=== PATIENT | female | born 1995 | race Two or more races ===

== ENCOUNTER → 2016-09-24 | Outpatient (CLI) | payer SELFPAY | LOC: RAD 08:23 | PROVIDERS: ATTEND Nurse Practitioner Women's Health | DX: Z34.82 Encounter for supervision of other normal pregnancy, second trimester (principal) | CPT/HCPCS: 76805 ==

== ENCOUNTER 2017-02-12 10:48 | Outpatient (CLI) | payer MEDICAID ==
--- NOTE | 2017-02-12 12:33 | Non Stress Test Report ---
Non Stress Test Datetime Report Generated by CPN: 02/12/2017 12:33 DEMOGRAPHIC EGA NST: 40.1 INDICATION Indication for Study: Ordered by Provider MONITORING Monitor Explained: Monitor Explained; Test Explained; Patient Verbalized Understanding Time on Monitor: 02/12/2017 11:05 Time off Monitor: 02/12/2017 11:46 NST Duration: 41 NST INTERVENTIONS NST Interventions: None Physician Notified NST: J. Rocha, CNM BABY A: [id number] BABY A Movement : Present Contraction Frequency : rare FHR Baseline : 140 Accelerations : 15X15 Decelerations : None Variability : Moderate 6-25bpm NST Review: Meets Criteria for Reactive NST NST Review and Verified By : Libby Camp RNC NST Results: Reactive NST REPORT Report Trigger: Send Report
--- NOTE | 2017-02-12 12:35 | RADIOLOGY REPORT (SQ) ---
EXAM DESCRIPTION: U/S OB LIMITED COMPLETED DATE/TIME: 02/12/2017 12:19 pm REASON FOR STUDY: iup 40 weeks OLGA COMPARISON: None. TECHNIQUE: Limited transabdominal grayscale ultrasound for evaluation of specific requested obstetri andrea parameters. LIMITATIONS: None. FINDINGS: CERVICAL LENGTH: Not applicable. Greater than 20 weeks. Need transvaginal study if indicat ed. OLGA: 11.4 cm. FHR: 155 beats per minute. PRESENTATION: Cephalic. OTHER: No other significant findings. IMPRESSION: LIMITED OBSTETRICAL ULTRASOUND WITH MEASURED PARAMETERS DELINEATED ABOVE. Trimester of : Third trimester - 28 weeks to delivery. TECHNICAL DOCUMENTATION: JOB ID: [id number] [employer]- All Rights Reserved
== END 2017-02-12 12:35 | disposition home or self-care (01) ==
LOC: LC 10:48
PROVIDERS: ATTEND Specialist
PROC: 4A1HXCZ Monitoring of Products of Conception, Cardiac Rate, External Approach (ICD-10-PCS; principal; 2017-02-12)
DX: O48.0 Post-term pregnancy (principal); Z3A.40 40 weeks gestation of pregnancy
CPT/HCPCS: 59025; 76815

== ENCOUNTER 2017-02-18 23:24 | Inpatient (IN) | payer MEDICAID ==
[2017-02-18 23:57] LABS: ABSOLUTE BASOPHILS # (AUTO) 0.1 10^3/uL (0.0-0.2); ABSOLUTE EOSINOPHILS # (AUTO) 0.1 10^3/uL (0.0-0.6); ABSOLUTE LYMPHOCYTES (AUTO) 3.1 10^3/uL (0.5-4.7); ABSOLUTE MONOCYTES (AUTO) 0.9 10^3/uL (0.1-1.4); ABSOLUTE NEUT (AUTO) 7.6 10^3/uL (1.7-8.2); BASOPHILS % (AUTO) 0.4 % (0-2); EOSINOPHILS % (AUTO) 0.4 % (0-6); HEMATOCRIT 30.7 % (36.0-47.0); HEMOGLOBIN 9.8 g/dL (12.0-15.5); HGB HCT DIFFERENCE -1.3; LYMPHOCYTES % (AUTO) 26.3 % (13-45); MEAN CORPUSCULAR HEMOGLOBIN 21.5 pg (27.0-33.4); MEAN CORPUSCULAR HGB CONC 31.8 g/dL (32.0-36.0); MEAN CORPUSCULAR VOLUME 68 fl (80-97); MONOCYTES % (AUTO) 7.7 % (3-13); RED BLOOD COUNT 4.53 10^6/uL (3.72-5.28); SEGMENTED NEUTROPHILS % (AUTO) 65.2 % (42-78); WHITE BLOOD COUNT 11.6 10^3/uL (4.0-10.5)
[2017-02-19 00:02] LABS: APPEARANCE,URINE SLIGHTLY-CLOUDY; BILIRUBIN,URINE NEGATIVE (NEGATIVE); GLUCOSE, URINE NEGATIVE (NEGATIVE); KETONES,URINE NEGATIVE (NEGATIVE); LEUKOCYTE ESTERASE,URINE SMALL (NEGATIVE); NITRITE,URINE NEGATIVE (NEGATIVE); PROTEIN,URINE NEGATIVE (NEGATIVE); URINE SPECIFIC GRAVITY 1.011; UROBILINOGEN,URINE NEGATIVE mg/dL (<2.0)
[2017-02-19 00:17] LABS: AMNISURE (ROM) NEGATIVE (NEGATIVE)
[2017-02-19 00:31] LABS: URINE BARBITURATES SCREEN NEGATIVE; URINE METHADONE SCREEN NEGATIVE; URINE OPIATES LOW NEGATIVE; URINE PHENCYCLIDINE SCREEN NEGATIVE
[2017-02-19] MEDS ORDERED: OXYTOCIN/NORMAL SALINE 1,000 ML IV PRN ×2 (00:34→20:23)
[2017-02-19] MEDS ORDERED: DINOPROSTONE 10 MG VAGINAL INSERT.SR PV ONE (00:34)
[2017-02-19] MEDS ORDERED: ACETAMINOPHEN 325 MG TABLET PO PRN (00:34)
[2017-02-19] MEDS ORDERED: MAG HYDROX/AL HYDROX/SIMETH SUSP 30 ML UDCUP PO PRN (00:34)
[2017-02-19] MEDS ORDERED: ZOLPIDEM TARTRATE 5 MG TABLET ONE (00:42)
[2017-02-19] MEDS: RINGERS SOLUTION,LACTATED 1,000 ML IV PRN ×3 (00:42→20:35)
[2017-02-19] MEDS ORDERED: DINOPROSTONE 10 MG VAGINAL INSERT.SR ONE (00:42)
[2017-02-19] MEDS: ZOLPIDEM TARTRATE 5 MG TABLET PO PRN ×2 (01:26→03:27)
[2017-02-19] MEDS ORDERED: MISOPROSTOL 0.1 MG TABLET ONE (14:09)
[2017-02-19] MEDS ORDERED: MISOPROSTOL 0.1 MG TABLET PO ONE (14:30)
[2017-02-19] MEDS ORDERED: OXYTOCIN/NORMAL SALINE 20 UNIT/1,000 ML RTUINJ ONE (20:27)
[2017-02-19] MEDS ORDERED: PENICILLIN G-K 5 MILLION UNIT VIAL ONE (22:34)
[2017-02-19] MEDS ORDERED: PENICILLIN G-K 5 MILLION UNIT VIAL IV PRN (22:44)
[2017-02-19] MEDS ORDERED: PENICILLIN G POTASSIUM 5,000,000 UNIT in DEXTROSE 5%-WATER 100 ML IV ONE (23:00)
[2017-02-20] MEDS ORDERED: PROMETHAZINE HCL INJ 25 MG/1 ML VIAL ONE (01:39)
[2017-02-20] MEDS ORDERED: NALBUPHINE HCL INJ 10 MG/1 ML AMPULE ONE (01:39)
[2017-02-20] MEDS ORDERED: NALBUPHINE HCL INJ 10 MG/1 ML AMPULE INJ ONE (01:50)
[2017-02-20] MEDS ORDERED: PROMETHAZINE HCL INJ 25 MG/1 ML VIAL IV ONE (01:50)
[2017-02-20] MEDS ORDERED: PENICILLIN G-K 5 MILLION UNIT VIAL ONE ×2 (02:14→07:18)
[2017-02-20] MEDS ORDERED: PENICILLIN G POTASSIUM 2,500,000 UNIT in DEXTROSE 5%-WATER 50 ML IV SCH (03:00)
[2017-02-20] MEDS ORDERED: FENTANYL/BUPIVACAINE/NS/PF 100 ML EPI PRN (05:06)
[2017-02-20] MEDS ORDERED: BENZOIN/ALOE VERA/STORAX/TOLU TINCTURE 60 ML TP PRN (05:06)
[2017-02-20] MEDS ORDERED: EPHEDRINE SULFATE INJ 50 MG/1 ML AMPULE IV PRN (05:06)
[2017-02-20] MEDS ORDERED: DIPHENHYDRAMINE HCL 50 MG/ML VIAL IM PRN (05:06)
[2017-02-20] MEDS ORDERED: BUPIVACAINE HCL 0.25 % INJ/PF (2.5 MG/1 ML) 30 ML VIAL INFIL ONE (05:06)
[2017-02-20] MEDS ORDERED: EPHEDRINE SULFATE INJ 50 MG/1 ML AMPULE ONE (05:15)
[2017-02-20] MEDS ORDERED: FENTANYL/BUPIVACAINE/NS/PF 200 MCG/100 ML RTUINJ EPI ONE (05:15)
[2017-02-20] MEDS ORDERED: BUPIVACAINE HCL 0.25 % INJ/PF (2.5 MG/1 ML) 30 ML VIAL ONE (05:15)
[2017-02-20] MEDS: RINGERS SOLUTION,LACTATED 1,000 ML IV PRN (06:31)
[2017-02-20] MEDS ORDERED: OXYTOCIN/NORMAL SALINE 0 UNIT/0 ML RTUINJ ONE (06:57)
[2017-02-20] MEDS ORDERED: LIDOCAINE 0.5% INJ-PF (5 MG/ML) 50 ML SDV ONE (06:57)
[2017-02-20] MEDS ORDERED: MISOPROSTOL 0.2 MG TABLET ONE (06:57)
[2017-02-20] MEDS ORDERED: LIDOCAINE 1% INJ-PF (10 MG/ML) 30 ML SDV ONE (07:18)
[2017-02-20] MEDS: PENICILLIN G-K 5 MILLION UNIT VIAL IV SCH ×4 (07:23→22:57)
[2017-02-20] MEDS ORDERED: DIPHENHYDRAMINE HCL 50 MG/ML VIAL ONE ×2 (08:30→08:52)
[2017-02-20] MEDS ORDERED: CEFAZOLIN 2 GM/D5W RTU 2 GM/50 ML RTUPB IV ONE (11:21)
[2017-02-20] MEDS ORDERED: CITRIC ACID/SODIUM CITRATE ORAL SOLN 15 ML UDCUP ONE (11:21)
[2017-02-20] MEDS ORDERED: ONDANSETRON HCL INJ/PF 4 MG/2 ML SDV ONE (11:22)
[2017-02-20] MEDS ORDERED: OXYTOCIN/NORMAL SALINE 20 UNIT/1,000 ML RTUINJ ONE ×2 (11:22→12:39)
[2017-02-20] MEDS ORDERED: OXYTOCIN 10 UNIT/ML VIAL ONE (11:22)
[2017-02-20] MEDS ORDERED: FENTANYL CITRATE INJ/PF 100 MCG/2 ML AMPUL ONE (11:23)
[2017-02-20] MEDS ORDERED: MIDAZOLAM 2 MG/2 ML INJ ONE (12:12)
[2017-02-20] MEDS ORDERED: ACETAMINOPHEN 100 ML IV ONE (12:52)
--- NOTE | 2017-02-20 13:21 | Delivery Summary ---
Del Sum A-C Datetime Report Generated by CPN: 02/20/2017 13:21 DELIVERY PERSONNEL DELIVERY PERSONNEL: [phone] Delivery Doctor:: Tyrell Mims DO Anesthesiologist:: Prashant Fletcher MD ALLIED HEALTH INSTRUCTOR:: R MICHELLE ALLIED HEALTH INSTRUCTOR Labor and Delivery Nurse:: Mariella Mariscal RN Student Observers:: SN Joselyn Clinical Nurse/TECHNICAL TRAINING MANAGER: ST Allie Clinical Nurse/TECHNICAL TRAINING MANAGER: Fartun Sanchez CST Additional Personnel: : MARGA KELLER MATERNAL INFORMATION Delivery Anesthesia: Spinal Medications After Delivery: Pitocin Bolus-Please Comment Meds After Delivery Comment: Pitocin 20 units in 1 L NS bolusing per order Estimated Blood Loss (ml): 600 Maternal Complications: None LABOR SUMMARY EDC: 02/11/2017 00:00 No. Babies in Womb: 1 Attempted: No Labor Anesthesia: Epidural LABOR INFORMATION Reason for Induction: Post Dates Onset of Labor: 02/19/2017 22:00 Cervical Ripening Agents: Cervidil; Cytotec @ Oxytocin: Induction Group B Beta Strep: positive Antibiotics # of Doses: 3 Antibiotics Time of Last Dose: 1140 Name of Antibiotic Given: PCN G, Ancef Steroids Given: None Reason Steroids Not Administered: Not Applicable MEMBRANES Membranes Rupture Method: Spontaneous Rupture of Membranes: 02/20/2017 06:18 Length of Rupture (hr): 5.77 Amniotic Fluid Color: Clear Amniotic Fluid Amount: Large Amniotic Fluid Odor: Normal STAGES OF LABOR Stage 3 hr: 0 Stage 3 min: 1 Total Time in Labor hr: 14 Total Time in Labor min: 5 VAGINAL DELIVERY Episiotomy: None Laceration Extension: N/A Laceration Type: None Sponge Count Correct: N/A Sharps Count Correct: N/A CSECTION DELIVERY Primary Indication: Secondary Arrest of Dilatation Secondary Indication: N/A CSection Urgency: Non-Scheduled CSection Incidence: Primary Labor: Labor Elective: Nonelective CSection Incision: Lower Uterine Transverse BABY A INFORMATION Delivery Date/Time: 02/20/2017 12:04 Method of Delivery: Vaginal Born in Route : No : N/A Forceps: N/A Vacuum Extraction: N/A Shoulder Dystocia : No PRESENTATION/POSITION BABY A Presentation: Cephalic Cephalic Presentation: Vertex Breech Presentation: N/A PLACENTA INFORMATION BABY A Placenta Delivery Time : 02/20/2017 12:05 Placenta Method of Delivery: Expressed Placenta Status: Delivered SCORES BABY A Heart Rate 1 min: >100 bpm Resp Effort 1 min: Good Cry Reflex Irritability 1 min: Cough or Sneeze or Pulls Away Muscle Tone 1 min: Active Motion Color 1 min: Blue/Pale Resuscitation Effort 1 min: Tactile Stimulation SCORE 1 MIN: 8 Heart Rate 5 min: >100 bpm Resp Effort 5 min: Good Cry Reflex Irritability 5 min: Cough or Sneeze or Pulls Away Muscle Tone 5 min: Active Motion Color 5 min: Body [place], Extremities Blue Resuscitation Effort 5 min: Tactile Stimulation SCORE 5 MIN: 9 INFORMATION BABY A Gestational Age at Delivery: 41.2 Gestational Status: Late Term- 41- 41.6 Weeks Outcome : Liveborn Infant Condition : Stable Sex: Female IDENTIFICATION BABY A Infant Verification Date/Time: 02/20/2017 12:16 ID Band Number: [id number] Mother's Name Verified: Yes RN Verifying : Elmo Mariscal, RN, RArvind Tyler, RN WEIGHT/LENGTH BABY A Birthweight (gm): 4005 Infant Weight (lb): 8 Weight (oz): 13 Infant Length (in): 21.50 Infant Length (cm): 54.61 CORD INFORMATION BABY A No. Cord Vessels: 3 Nuchal Cord : N/A Nuchal Cord- Other: body cord Cord Blood Taken: Yes-For Storage (Mom's Blood type +) Suction: Mouth; Nose ASSESSMENT BABY A Complications: None Physical Findings at Delivery: Within Normal Limits Infant Respirations: Appears Normal Skin to Skin: No Skin to Skin Time (min): 0 Advice Clerk/ALS Called : No Care By: Katina Tyler Transferred To: Nursery BABY B INFORMATION : N/A
[2017-02-20] MEDS ORDERED: ONDANSETRON HCL INJ/PF 4 MG/2 ML SDV IV PRN (14:06)
[2017-02-20] MEDS ORDERED: KETOROLAC TROMETHAMINE INJ/PF 30 MG/1 ML SDV IV PRN (14:06)
[2017-02-20] MEDS ORDERED: MORPHINE SULFATE 10 MG/ML INJ IV PRN (14:06)
[2017-02-20] MEDS ORDERED: MEASLES,MUMPS&RUBELLA VACC/PF 0.5 ML VIAL SUBCUT PRN ×3 (14:19→14:56)
[2017-02-20] MEDS ORDERED: PROMETHAZINE HCL INJ 25 MG/1 ML VIAL IV PRN ×2 (14:19→14:26)
[2017-02-20] MEDS ORDERED: ACETAMINOPHEN 325 MG TABLET PO PRN ×3 (14:19→14:56)
[2017-02-20] MEDS ORDERED: SIMETHICONE 80 MG TAB.CHEW PO PRN ×3 (14:19→14:56)
[2017-02-20] MEDS ORDERED: RINGERS SOLUTION,LACTATED 1,000 ML IV PRN ×3 (14:19→14:56)
[2017-02-20] MEDS ORDERED: OXYCODONE-ACETAMINOPHEN 5-325 MG TABLET PO PRN ×5 (14:19→14:56)
[2017-02-20] MEDS ORDERED: DIPH/PERTUSS(ACELL)/TETANUS VAC/PF 0.5 ML SYR (>=10YO) IM PRN ×3 (14:19→14:56)
[2017-02-20] MEDS ORDERED: HYDROMORPHONE HCL INJ/PF 2 MG/ML AMPULE IV PRN ×3 (14:19→14:56)
[2017-02-20] MEDS ORDERED: OXYTOCIN/NORMAL SALINE 1,000 ML IV PRN (14:26)
[2017-02-20] MEDS ORDERED: MORPHINE SULFATE 10 MG/ML INJ ONE (14:26)
--- NOTE | 2017-02-20 14:38 | Admission Physical ---
Datetime Report Generated by CPN: 02/20/2017 14:38 CURRENT ADMISSION Chief Complaint: Scheduled Induction of Labor Indication for Induction: Postterm Admit Plan: Admit to Unit; Initiate Labor Induction Protocol ALLERGIES Medication Allergies: No Medication Allergies: No Known Allergies (02/18/2017) Medication Allergies: No Known Allergies (02/12/2017) Medication Allergies: No Known Allergies (06/14/2015) Latex: No Latex Allergies OBSTETRICAL HISTORY EDC: 02/11/2017 00:00 : 3 Para: 0 Term: 0 : 0 SAB: 0 IAB: 2 Livin Cesareans: 0 VBACs: 0 Gestational Diabetes: No Rh Sensitization: No Incompetent Cervix: No PAIGE: No Infertility: No ART Treatment: No Uterine Anomaly: No IUGR: No Hx Previous C/S: No Macrosomia: No Hx Loss/Stillborn: No PIH: No Hx : No Placenta Previa/Abruption: No Depression/PP Depression: No PTL/PROM: No Post Hemorrhage: No Current Procedures: Ultrasound; NST SEE RECORDS Alcohol: No Marijuana : No Cocaine: No Other Illicit Drugs: No Cigarettes: Never Smoker. [id number] MEDICAL HISTORY Diabetes: No Blood Transfusion: No Pulmonary Disease (Asthma, TB): No Breast Disease: No Hypertension: No Claim Clinician Surgery: No Heart Disease: No Hosp/Surgery: Yes Autoimmune Disorder: No Anesthetic Complications: No Kidney Disease: No Abnormal Pap Smear: No Neuro/Epilepsy: No Psychiatric Disorders: No Other Medical Diseases: No Hepatitis/Liver Disease: No Significant Family History: No Varicosities/Phlebitis: No Trauma/Violence : No Thyroid Dysfunction: No Medical History Comments: sickle cell trait gallbladder removal 2015 INFECTIOUS HISTORY Gonorrhea: No Genital Herpes: Yes Chlamydia: Yes Tuberculosis: No Syphilis: No Hepatitis: No HIV/AIDS Exposure: No Rash or Viral Illness: No HPV: No Infectious History Comments: chlamydia July 2016 partner HSV PHYSICAL EXAM General: Normal HEENT: Normal Neurologic: Normal Thyroid: Normal Heart: Normal Lungs: Normal Breast: Deferred Back: Normal Abdomen: Normal Genitourinary Exam: Normal Extremities: Normal DTRs: Normal Pelvic Type: Adequate Vital Signs: Reviewed; Within Normal Limits VAGINAL EXAM Dilatation: closed Effacement: th Station: hi FETUS A EGA: 41.1 Monitoring: External US FHR- Baseline: 130 Variability: Moderate 6-25bpm Accelerations: 15X15 Decelerations: None FHR Category: Category I Presentation: Vertex Admit Comment: 21yo at 41+1ega presents for IOL due to post LUIS. Cvx closed/th/hi. Cervidil placed at 0100. GBS pos. PCN ordered for GBS prophylaxis. 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 Initiate IOL with Cervidil and proceed with FB/pitocin as indicated. Anticiapte . Pelvis adequate for EGMA. Sickle Cell Trait. PLANS FOR LABOR AND DELIVERY Pain Management: None Feeding Preference: Both Benefit of Breast Feed Discussed: Yes Circumcision: N/A INFORMED CONSENT Informed Consent Obtained: Vaginal Delivery; Risks, Benefits and Alternatives Discussed Signature: with User ID: [email or web address]
[2017-02-20] MEDS ORDERED: PROMETHAZINE HCL INJ 25 MG/1 ML VIAL IM PRN (14:56)
[2017-02-20] MEDS ORDERED: OXYTOCIN/NORMAL SALINE 20 UNIT/1,000 ML RTUINJ INJ PRN (14:56)
[2017-02-20] MEDS: IBUPROFEN 800 MG TABLET PO SCH ×2 (17:56→23:41)
[2017-02-20] MEDS: DOCUSATE SODIUM 100 MG CAPSULE PO SCH (17:57)
[2017-02-20] MEDS ORDERED: DOCUSATE SODIUM 100 MG CAPSULE PO SCH ×2 (18:00)
[2017-02-20] MEDS: OXYCODONE-ACETAMINOPHEN 5-325 MG TABLET PO PRN (20:15)
[2017-02-21] MEDS: OXYCODONE-ACETAMINOPHEN 5-325 MG TABLET PO PRN ×4 (00:19→22:26)
[2017-02-21] MEDS: PENICILLIN G-K 5 MILLION UNIT VIAL IV SCH ×2 (02:09→06:41)
[2017-02-21] MEDS: IBUPROFEN 800 MG TABLET PO SCH ×3 (05:12→17:50)
[2017-02-21 08:44] LABS: HEMATOCRIT 24.7 % (36.0-47.0); HGB HCT DIFFERENCE -1.9; MEAN CORPUSCULAR HEMOGLOBIN 21.2 pg (27.0-33.4); MEAN CORPUSCULAR HGB CONC 30.6 g/dL (32.0-36.0); MEAN CORPUSCULAR VOLUME 69 fl (80-97); RED BLOOD COUNT 3.57 10^6/uL (3.72-5.28); RED CELL DISTRIBUTION WIDTH 17.2 % (11.5-14.0); WHITE BLOOD COUNT 12.8 10^3/uL (4.0-10.5)
[2017-02-21 08:46] LABS: HEMOGLOBIN 7.6 g/dL (12.0-15.5)
[2017-02-21] MEDS ORDERED: PRENATAL VITAMIN W-O CA NO5/FE FUMARATE/FA CAPSULE PO SCH ×2 (10:00)
[2017-02-21] MEDS: DOCUSATE SODIUM 100 MG CAPSULE PO SCH ×2 (10:36→17:50)
[2017-02-21] MEDS: PRENATAL VITAMIN W-O CA NO5/FE FUMARATE/FA CAPSULE PO SCH (10:36)
--- NOTE | 2017-02-21 11:39 | PDOC PROGRESS REPORT ---
Subjective-OB Subjective: Post Delivery Day: 1 21 year old. Denies any needs at this time, states lochia is stable pain is well controlled, voiding without difficulty. Physical Exam (OB) Vital Signs: Temp Pulse Resp BP Pulse Ox 97.8 F 79 16 110/60 99 02/21/17 09:00 02/21/17 09:00 02/21/17 09:00 02/21/17 09:00 02/21/17 09:00 Intake & Output 02/20/17 02/21/17 02/22/17 06:59 06:59 06:59 Intake Total 1850 Output Total 2340 300 Balance -490 -300 - Dressing Removed: Yes - medipore dressing removed, opsite dressing D&I, no swelling or redness Incision: Well Approximated - Lochia Lochia Amount: Scant < 10 ml Lochia Color: Rubra/Red - Abdomen Description: Tender, Soft Hernia Present: No Fundal Description: Midline Fundal Height: u/u - u/2 Objective-Diagnostic Laboratory: 02/21/17 08:30 02/21/17 08:30 WBC 12.8 H RBC 3.57 L Hgb 7.6 L D Hct 24.7 L MCV 69 L MCH 21.2 L MCHC 30.6 L RDW 17.2 H Plt Count 206 Assessment and Plan(PN) - Time Spent with Patient Time with patient: Less than 15 minutes Critical Time spent with patient: Less than 15 minutes Medications reviewed and adjusted accordingly: Yes - Disposition Anticipated Discharge: Home Within: within 24 hours
[2017-02-22] MEDS: IBUPROFEN 800 MG TABLET PO SCH ×2 (00:37→06:34)
[2017-02-22 08:50] VITALS: BP 114/70
[2017-02-22] MEDS: DOCUSATE SODIUM 100 MG CAPSULE PO SCH (09:09)
[2017-02-22] MEDS: PRENATAL VITAMIN W-O CA NO5/FE FUMARATE/FA CAPSULE PO SCH (09:10)
--- NOTE | 2017-02-22 10:17 | PDOC DISCHARGE SUMMARY ---
Final Diagnosis Discharge Date: 02/22/17 - Final Diagnosis (1) Acute blood loss anemia Is this a current diagnosis for this admission?: Yes (2) Status post repeat low transverse section Is this a current diagnosis for this admission?: Yes Discharge Data - Discharge Medication Home Medications: Acyclovir [Zovirax 200 mg Capsule] 200 mg PO TID 02/12/17 Pnv No.122/Iron/Folic Acid [ Multi Tablet] 1 tab PO DAILY 02/12/17 Docusate Sodium [Colace 100 mg Capsule] 100 mg PO BID #60 capsule 02/22/17 Ferrous Sulfate [[place]] 325 mg PO BID #60 tablet 02/22/17 Ibuprofen [Motrin 800 mg Tablet] 800 mg PO Q6 #60 tablet 02/22/17 Oxycodone HCl/Acetaminophen [Percocet 5-325 mg Tablet] 2 tab PO Q4HP PRN #30 tablet 02/22/17 Gestational Age: 41.2 Reason(s) for Admission: Induction of Labor, Group B Strep Positive Procedures: NST Intrapartum Procedure(s): Spontaneous Vaginal Delivery - Data Baby 1 Female at 1 minute: 8 at 5 minutes: 9 Weight: 4005 kg Home with Mother: Yes Complications: No - Diagnosis Test Laboratory: Temp Pulse Resp BP Pulse Ox 98.2 F 81 17 114/70 100 02/22/17 08:30 02/22/17 08:29 02/22/17 08:29 02/22/17 08:29 02/22/17 08:29 02/18/17 02/18/17 02/21/17 23:37 23:44 08:30 RBC 4.53 3.57 L Hgb 9.8 L 7.6 L D Hct 30.7 L 24.7 L Urine Opiates Screen NEGATIVE - Discharge information/Instructions Discharge Activity: Activity As Tolerated, No Driving, No Lifting Over 10 Pounds , Pelvic Rest, No tub bath Discharge Diet: Regular Disposition: HOME, SELF-CARE Follow up with: [facility] in: 1, Weeks
--- NOTE | 2017-04-01 17:28 | OPERATIVE REPORT E ---
Operative Report NAME: MARY CHOI : 1995 AGE: 21Y DATE OF SURGERY: 02/20/2017 ROOM: 227 PREOPERATIVE DIAGNOSIS: ARREST OF DILATATION. POSTOPERATIVE DIAGNOSIS: ARREST OF DILATATION. OPERATION: Primary low transverse section. SURGEON: Tyrell Mims D.O. NIGHT BAKER: None. ANESTHESIA: Epidural. COMPLICATIONS: None. TISSUE REMOVED OR ALTERED: Placenta. ESTIMATED BLOOD LOSS: 600 mL. FINDINGS: 1. Viable female infant at 0004 hours on 02/20/2017. Apgars of 8 at one and 9 at five. 2. Body cord x1. 3. Normal-appearing bilateral fallopian tubes and ovaries. PROCEDURE: The patient was taken to the operating room where her epidural anesthesia was found to be working adequately. She was then placed in the dorsal supine position with a left saenz tilt upon the operating room table. She was then prepped and draped in the normal sterile fashion. A scalpel was then used to make a Pfannenstiel skin incision. The skin incision was carried down through the subcutaneous tissue to the layer of the fascia. The fascia was then incised in the midline and the fascial incision was then extended bilaterally using the Bovie cautery. The superior fascial edge was grasped with Ronald clamps, elevated, and the rectus muscles were dissected off sharply and bluntly. Attention was then turned to the inferior fascial edge which was grasped with Ronald clamps, elevated, and rectus muscles were dissected off sharply and bluntly. The rectus muscles were then in the midline. The peritoneum was identified and entered bluntly with the surgeon's hands. A bladder blade was then inserted. A scalpel was then used to make a low transverse hysterotomy incision. The was delivered through this incision atraumatically and without difficulty. The nose and mouth were suctioned. The cord was clamped and cut. The was handed off to the waiting nurses. Of note, there was a body cord x1. The placenta was then manually removed from the uterus. The uterus was then exteriorized and cleared of all clots and debris. The hysterotomy incision was then reapproximated using 2 layers of 1-0 Vicryl in a running locking fashion. Following closure of the second layer, excellent hemostasis was noted. The uterus was then returned to the abdomen. Again, the hysterotomy was reinspected and found to have excellent hemostasis. The rectus muscles were then reapproximated using 1-0 Vicryl interrupted sutures. The fascia was then closed using 1-0 Vicryl in a running nonlocking fashion. The subcutaneous space was then made hemostatic using Bovie cautery and the skin was then closed with absorbable maricel, covered with an Op-Site and then with a pressure dressing. At this point in time, the procedure was terminated. All sponge, lap, and needle counts were correct x2. The patient tolerated the procedure well. The patient was taken to the recovery room in stable condition. DICTATING PHYSICIAN: Tyrell Mims DO [id number] PHY#: [id number] ID: [id number] JOB#: [id number] ACCT: [id number] cc:Tyrell Mims D.O. >
== END 2017-02-22 11:17 | disposition home or self-care (01) | DRG 766 ==
LOC: LR 23:24 → 2S 02-20 14:37
PROVIDERS: ADMIT Student in an Organized Health Care Education/Training Program; ATTEND Student in an Organized Health Care Education/Training Program
PROC: 3E0P7GC Introduction of Other Therapeutic Substance into Female Reproductive, Via Natural or Artificial Opening (ICD-10-PCS; 2017-02-19)
PROC: 3E033VJ Introduction of Other Hormone into Peripheral Vein, Percutaneous Approach (ICD-10-PCS; 2017-02-19)
PROC: 10D00Z1 Extraction of Products of Conception, Low, Open Approach (ICD-10-PCS; principal; 2017-02-20)
DX: O48.0 Post-term pregnancy (principal); O99.824 Streptococcus B carrier state complicating childbirth; O69.82X0 Labor and delivery complicated by other cord entanglement, without compression, not applicable or unspecified; O62.1 Secondary uterine inertia; O99.02 Anemia complicating childbirth; D57.3 Sickle-cell trait; Z37.0 Single live birth; Z3A.41 41 weeks gestation of pregnancy
CPT/HCPCS: 1961; 36415; 80307; 81005; 84112; 85025; 85027; 86592; 86850; 86900; 86901; 94760; 94799; J0131; J0690; J1170; J1200; J2250; J2270; J2300; J2405; J2540; J2550; J2590; J3010; J3490

== ENCOUNTER 2018-03-21 20:12 | Emergency (ER) | payer OTHER, MEDICAID ==
[2018-03-21 20:55] VITALS: BP 115/69
[2018-03-21] MEDS ORDERED: IBUPROFEN 800 MG TABLET PO ONE (22:09)
--- NOTE | 2018-03-21 22:11 | ER Document Report ---
ED Medical Screen (RME) - General Chief Complaint: Foot Injury Stated Complaint: FOOT INJURY Time Seen by Provider: 03/21/18 22:09 Mode of Arrival: Wheelchair Information source: Patient Notes: 22-year-old female presented to ED for complaint of pain to her left foot and ankle. She states she jumped a scale at an wound on her foot and ankle while at work around 6 PM. She states she does not have any allergies. She does not smoke drink or do any drugs. She has swelling and discomfort to her left foot and ankle. She is unable to bear weight on this foot at this time. She is alert oriented respirations are regular and unlabored. I have greeted and performed a rapid initial assessment of this patient. A comprehensive ED assessment and evaluation of the patient, analysis of test results and completion of medical decision making process will be conducted by an additional ED providers. TRAVEL OUTSIDE OF THE [place] IN LAST 30 DAYS: No - Related Data Allergies/Adverse Reactions: No Known Allergies Allergy (Verified 02/18/17 23:35) Physical Exam - Vital signs Vitals: Temp Pulse Resp BP Pulse Ox 97.5 F 75 14 115/69 100 03/21/18 20:54 03/21/18 20:54 03/21/18 20:54 03/21/18 20:54 03/21/18 20:54 Course - Vital Signs Vital signs: Temp Pulse Resp BP Pulse Ox 97.5 F 75 14 115/69 100 03/21/18 20:54 03/21/18 20:54 03/21/18 20:54 03/21/18 20:54 03/21/18 20:54 Doctor's Discharge - Discharge Referrals: EMMANUEL MEZA MD [Primary Care Provider] - Follow up as needed
--- NOTE | 2018-03-21 23:03 | RADIOLOGY REPORT (SQ) ---
EXAM DESCRIPTION: 3 views of the left ankle March 21, 2018 CLINICAL HISTORY: 22 years, Female, pain swelling dropped skillet on foot and ankle COMPARISON: None. FINDINGS: There is no acute fracture or dislocation. There is no focal soft tissue swelling or joint effusion. The bony alignment is normal. Limited evaluation of the distal tibia/ fibula demonstrate no gross abnormalities. The talus, calcaneus, tarsal, and metatarsal bones are grossly normal in appearance. The intertarsal, tarsometatarsal, and visualized metatarsophalangeal joints are grossly normal in appearance. IMPRESSION: No acute fracture or dislocation.
--- NOTE | 2018-03-21 23:06 | RADIOLOGY REPORT (SQ) ---
EXAM DESCRIPTION: XR FOOT 3 OR MORE VIEWS COMPLETED DATE/TME: 03/21/2018 22:09 CLINICAL HISTORY: 22 years, Female, pain swellling dropped skillet on foot and ankle COMPARISON: None. NUMBER OF VIEWS: Three TECHNIQUE: Three views LEFT foot were obtained in AP, lateral and oblique projection. LIMITATIONS: None. FINDINGS: Hallux valgus deformity. No fracture or dislocation. The soft tissues are within normal limits. The joint spaces are preserved. IMPRESSION: Hallux valgus deformity without fracture or dislocation. 2011 [employer] [facility] [employer]- All Rights Reserved
[2018-03-22] MEDS ORDERED: HYDROCODONE/ACETAMINOPHEN 5-325 MG (6 TAB/ER DISP) PO PRN
--- NOTE | 2018-03-22 00:01 | ER Document Report ---
ED Extremity Problem, Lower - General Chief Complaint: Foot Injury Stated Complaint: FOOT INJURY Time Seen by Provider: 03/21/18 22:09 Mode of Arrival: Wheelchair Information source: Patient Notes: 32-year-old female presented ED for complaint of pain to left foot and ankle. She states she was at work when she dropped a skillet and a piece of wood she was carrying on her foot. States this was about 6 PM tonight. She states she has had pain and swelling and not been able to bear weight on this foot since the injury. TRAVEL OUTSIDE OF THE [place] IN LAST 30 DAYS: No - HPI Patient complains to provider of: Injury, Pain, Swelling Location: Ankle, Foot Occurred: This evening Where: Work Onset/Duration: Sudden, Persistent Quality of pain: Sharp, Throbbing Severity: Moderate Pain Level: 3 Context: Other - Dropped a skillet on her foot Recent injury: Yes Associated symptoms: Unable to bear weight Exacerbated by: Hanging down, Movement, Walking Relieved by: Nothing - Related Data Allergies/Adverse Reactions: No Known Allergies Allergy (Verified 02/18/17 23:35) Past Medical History - General Information source: Patient - Social History Smoking Status: Never Smoker Cigarette use (# per day): No Chew tobacco use (# tins/day): No Smoking Education Provided: No Frequency of alcohol use: None Drug Abuse: None Lives with: Family Family History: None Patient has suicidal ideation: No Patient has homicidal ideation: No - Past Medical History Cardiac Medical History: Reports: None Pulmonary Medical History: Reports: None EENT Medical History: Reports: None Neurological Medical History: Reports: None Endocrine Medical History: Reports: None Renal/ Medical History: Reports: None Malignancy Medical History: Reports: None GI Medical History: Reports: None Musculoskeletal Medical History: Reports None Skin Medical History: Reports None Psychiatric Medical History: Reports: None Traumatic Medical History: Reports: None Infectious Medical History: Reports: None Review of Systems - Review of Systems Constitutional: No symptoms reported EENT: No symptoms reported Cardiovascular: No symptoms reported Respiratory: No symptoms reported Gastrointestinal: No symptoms reported Genitourinary: No symptoms reported Female Genitourinary: No symptoms reported Musculoskeletal: Other - Pain and swelling to her left foot and ankle Skin: No symptoms reported Hematologic/Lymphatic: No symptoms reported Neurological/Psychological: No symptoms reported Physical Exam - Vital signs Vitals: Temp Pulse Resp BP Pulse Ox 97.5 F 75 14 115/69 100 03/21/18 20:54 03/21/18 20:54 03/21/18 20:54 03/21/18 20:54 03/21/18 20:54 Interpretation: Normal - General General appearance: Appears well, Alert - HEENT Head: Normocephalic, Atraumatic Eyes: Normal Pupils: PERRL - Respiratory Respiratory status: No respiratory distress Chest status: Nontender Breath sounds: Normal Chest palpation: Normal - Cardiovascular Rhythm: Regular Heart sounds: Normal auscultation Murmur: No - Abdominal Inspection: Normal Distension: No distension Bowel sounds: Normal Tenderness: Nontender Organomegaly: No organomegaly - Back Back: Normal, Nontender - Extremities General upper extremity: Normal inspection, Nontender, Normal color, Normal ROM , Normal temperature General lower extremity: Normal temperature. No: Adams's sign Ankle: Tender, Ecchymosis, Limited ROM - Due to pain, Unable to bear weight Foot: Tender, Ecchymosis, Edema, Metatarsal compress. pain, No evidence of FB, Unable to bear weight - Neurological Neuro grossly intact: Yes Cognition: Normal Orientation: AAOx4 Roscoe Coma Scale Eye Opening: Spontaneous Roscoe Coma Scale Verbal: Oriented Roscoe Coma Scale Motor: Obeys Commands Roscoe Coma Scale Total: 15 Speech: Normal Motor strength normal: LUE, RUE, LLE, RLE Sensory: Normal - Psychological Associated symptoms: Normal affect, Normal mood - Skin Skin Temperature: Warm Skin Moisture: Dry Skin Color: Normal Course - Re-evaluation Re-evalutation: 03/22/18 00:10 X-rays discussed with patient and patient was given a written report of x-rays. A posterior short leg splint was applied patient was instructed on use of crutches and given a [employer] dispense pack before discharge. Patient was instructed on nonweightbearing with her crutches. Patient was instructed to follow-up with orthopedics by telephone Friday to schedule a follow-up appointment. Patient is not to return to work until cleared by orthopedics. - Vital Signs Vital signs: Temp Pulse Resp BP Pulse Ox 97.5 F 75 14 115/69 100 03/21/18 20:54 03/21/18 20:54 03/21/18 20:54 03/21/18 20:54 03/21/18 20:54 - Diagnostic Test Radiology reviewed: Image reviewed, Reports reviewed Procedures - Immobilization Left Ankle Time completed: 00:11 Immobilizer type: Crutches, Short Leg Posterior Performed by: PCT Post-Proc Neuro Vasc Exam: Normal Alignment checked and good: Yes Discharge - Discharge Clinical Impression: Left Hallux vargus deformity Condition: Stable Disposition: HOME, SELF-CARE Additional Instructions: You were s seen today for an injury to the left foot and ankle. You have a hallux vargus deformity of the left foot. This is a separation of 2 of the bones that I showed you. You will need a splint applied to your ankle at this time. You cannot bear any weight on this foot until you follow-up with orthopedics. You will be sent home with a [employer] dispense pack for your pain. SPLINT PRECAUTIONS: A splint has been placed. This will protect the area while healing begins. Your problem does NOT normally require a cast. It MUST, however, be held still! Keep the splint on ALL THE TIME until instructed to remove it by the doctor. As you begin to use the area, be careful. You shouldn't do anything which causes discomfort -- you may disturb the injury even with the splint in place. After the initial period of rest and elevation, if splint does not prevent pain when you move, come back. You may require placement of a different splint , or a cast. If there is unexpected severe pain, or numbness, discoloration, or swelling beyond the splint, you should return at once. If you feel that the splint has broken or become loose, come back. USE OF CRUTCHES: The doctor has recommended that you not bear weight at this time. You will need to use crutches. Adjust the crutches so the tops come to about two inches under the armpit while you are standing upright. Use your hands -- not your armpits -- to support your weight. To get into a chair, support yourself with one crutch on the injured side. Hold the chair with the other hand, then lower yourself while putting all your weight on the good leg. Going up stairs is `good leg up, step up, then bring up crutches and bad leg.' Down stairs is `bad leg and crutches down, then bring good leg down.' If you develop numbness or swelling in an arm or hand, you are using the crutches incorrectly. Return if you are having any problems with the crutches. ICE & ELEVATION: Apply ice packs frequently against the painful area. Many different schedules are recommended, such as "20 minutes on, 20 minutes off" or "one hour ice, two hours rest." If you need to work, you may need to go longer between ice treatments. You should plan to have the area ice packed AT LEAST one- fourth of the time. The ice should be applied over the wrap, tape, or splint, or over a layer of cloth -- not directly against the skin. Some ice bags have a built-in cloth and can be put directly on the skin. Your injured part should be elevated as much as possible over the next 48 hours. Try to keep the injury above the level of the heart. Avoid use of the injured area. Elevation and rest will decrease the swelling. USE OF [id number] IBUPROFEN: Ibuprofen (Advil, Nuprin, Medipren, Motrin IB) is a medication for fever and pain control. In addition, it has anti- inflammatory effects which may be beneficial, especially in the treatment of injuries. It's best to take ibuprofen with food. Persons with ulcer disease or allergy to aspirin should notify their physician of this before taking ibuprofen. Ibuprofen can be given every four to six hours, for a total of four doses daily. Age Pain or fever dose Antiinflammatory dose 6-8 yr 200 mg (1 tab) 200 mg (1 tab) 9-11 yr 200 mg (1 tab) 200-400 mg (1-2 tab) 11-14 yr 200-400 mg (1-2 tab) 400 mg (2 tab) 15-adult 400 mg (2 tab) 600 mg (3 tab) ORAL NARCOTIC MEDICATION: You have been given a norco dispense pack for pain control. This medication is a narcotic. It's best taken with food, as nausea can result if taken on an empty stomach. Don't operate machinery or drive within six hours of taking this medication. Do not combine this medicine with alcohol, or with any medication which can cause sedation (such as cold tablets or sleeping pills) unless you get permission from the physician. Narcotics tend to cause constipation. If possible, drink plenty of fluids and eat a diet high in fiber and fruits. Please be aware that prescription narcotics also have the potential for abuse. People become addicted to these medications because of the general sense of wellbeing that they induce. This feeling along with a significant reduction in tension, anxiety, and aggression provides a stimulating seductive quality to these drugs. Once your pain is under control, we encourage you to discard your unused narcotics. FOLLOW-UP CARE: If you have been referred to a physician for follow-up care, call the physician s office for an appointment as you were instructed or within the next two days. If you experience worsening or a significant change in your symptoms, notify the physician immediately or return to the Emergency Department at any time for re-evaluation. Forms: Special Work Note Referrals: EMMANUEL MEZA MD [Primary Care Provider] - Follow up as needed BEL AMBROCIO MD [ACTIVE STAFF] - 03/23/18
== END 2018-03-22 00:26 | disposition home or self-care (01) ==
LOC: ER 20:12
DX: M20.5X2 Other deformities of toe(s) (acquired), left foot (principal); S99.922A Unspecified injury of left foot, initial encounter; W22.8XXA Striking against or struck by other objects, initial encounter; Y99.0 Civilian activity done for income or pay
CPT/HCPCS: 99283

== ENCOUNTER 2018-12-19 16:36 | Emergency (ER) | payer MEDICAID, OTHER ==
--- NOTE | 2018-12-19 16:58 | ER Document Report ---
ED Medical Screen (RME) - General Chief Complaint: Flank Pain Stated Complaint: RIGHT FLANK PAIN Time Seen by Provider: 12/19/18 16:53 Primary Care Provider: EMMANUEL MEZA MD [Primary Care Provider] - Follow up as needed Mode of Arrival: Ambulatory Information source: Patient Notes: 23-year-old female presented to ED for complaint of right flank pain and pelvic pain off and on for the last month. She states a month ago she was treated with Macrobid for a UTI. She states she has had yellow vaginal drainage since about a month ago. She states they did swabs and ultrasound and everything was negative. She states the pain was relieved while she was on the Macrobid but it came back soon after. She states she is continued to have the yellow drainage. She states her only medical history is a gallbladder removed and a . She denies smoking drinking or doing any drugs. She lives at home with her . 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 Patient is alert oriented respirations regular and unlabored speaking in full sentences answering all questions appropriately. I have greeted and performed a rapid initial assessment of this patient. A comprehensive ED assessment and evaluation of the patient, analysis of test results and completion of medical decision making process will be conducted by an additional ED providers. TRAVEL OUTSIDE OF THE [place] IN LAST 30 DAYS: No - Related Data Allergies/Adverse Reactions: No Known Allergies Allergy (Verified 12/19/18 16:38) Past Medical History - Social History Chew tobacco use (# tins/day): No Frequency of alcohol use: None Drug Abuse: None Renal/ Medical History: Denies: Hx Peritoneal Dialysis Physical Exam - Vital signs Vitals: Temp Pulse Resp BP Pulse Ox 98.2 F 79 14 134/69 H 100 12/19/18 16:38 12/19/18 16:38 12/19/18 16:38 12/19/18 16:38 12/19/18 16:38 Course - Vital Signs Vital signs: Temp Pulse Resp BP Pulse Ox 98.2 F 79 14 134/69 H 100 12/19/18 16:38 12/19/18 16:38 12/19/18 16:38 12/19/18 16:38 12/19/18 16:38 Doctor's Discharge - Discharge Referrals: EMMANUEL MEZA MD [Primary Care Provider] - Follow up as needed
[2018-12-19 17:10] LABS: ABSOLUTE EOSINOPHILS # (AUTO) 0.1 10^3/uL (0.0-0.6); ABSOLUTE LYMPHOCYTES (AUTO) 3.2 10^3/uL (0.5-4.7); ABSOLUTE MONOCYTES (AUTO) 0.4 10^3/uL (0.1-1.4); ABSOLUTE NEUT (AUTO) 5.4 10^3/uL (1.7-8.2); BASOPHILS % (AUTO) 0.5 % (0-2); EOSINOPHILS % (AUTO) 0.7 % (0-6); HEMATOCRIT 37.2 % (36.0-47.0); HEMOGLOBIN 12.4 g/dL (12.0-15.5); LYMPHOCYTES % (AUTO) 34.8 % (13-45); MEAN CORPUSCULAR HEMOGLOBIN 25.3 pg (27.0-33.4); MEAN CORPUSCULAR HGB CONC 33.3 g/dL (32.0-36.0); MEAN CORPUSCULAR VOLUME 76 fl (80-97); MONOCYTES % (AUTO) 4.7 % (3-13); PLATELET COUNT 348 10^3/uL (150-450); RED BLOOD COUNT 4.91 10^6/uL (3.72-5.28); RED CELL DISTRIBUTION WIDTH 14.2 % (11.5-14.0); SEGMENTED NEUTROPHILS % (AUTO) 59.3 % (42-78); TOTAL CELLS COUNTED % (AUTO) 100 %; WHITE BLOOD COUNT 9.1 10^3/uL (4.0-10.5)
[2018-12-19 17:12] LABS: APPEARANCE,URINE CLEAR; BILIRUBIN,URINE NEGATIVE (NEGATIVE); COLOR,URINE YELLOW; GLUCOSE, URINE NEGATIVE (NEGATIVE); KETONES,URINE NEGATIVE (NEGATIVE); LEUKOCYTE ESTERASE,URINE TRACE (NEGATIVE); NITRITE,URINE NEGATIVE (NEGATIVE); PROTEIN,URINE NEGATIVE (NEGATIVE); UROBILINOGEN,URINE NEGATIVE mg/dL (<2.0)
[2018-12-19 17:27] LABS: ALANINE AMINOTRANSFERASE 48 U/L (9-52); ALBUMIN 4.5 g/dL (3.5-5.0); ALKALINE PHOSPHATASE 91 U/L (38-126); ANION GAP 11 (5-19); ASPARTATE AMINO TRANSFERASE 44 U/L (14-36); BILIRUBIN,DIRECT 0.2 mg/dL (0.0-0.4); BILIRUBIN,TOTAL 0.2 mg/dL (0.2-1.3); BLOOD UREA NITROGEN 9 mg/dL (7-20); CALCIUM 9.4 mg/dL (8.4-10.2); CARBON DIOXIDE 28 mmol/L (22-30); CHLORIDE 102 mmol/L (98-107); GLUCOSE 130 mg/dL (75-110); LIPASE 153.7 U/L (23-300); POTASSIUM 3.8 mmol/L (3.6-5.0); SODIUM 140.6 mmol/L (137-145); TOTAL PROTEIN 7.7 g/dL (6.3-8.2)
--- NOTE | 2018-12-19 18:56 | ER Document Report ---
ED General - General Chief Complaint: Flank Pain Stated Complaint: RIGHT FLANK PAIN Time Seen by Provider: 12/19/18 16:53 Primary Care Provider: EMMANUEL MEZA MD [ACTIVE STAFF] - Follow up as needed Mode of Arrival: Ambulatory Notes: 23-year-old female with history of cholecystectomy and presented to ED for complaint of right flank pain and pelvic pain off and on for the last month. She states a month ago she was treated with Macrobid for a UTI. She states she has had yellow vaginal drainage since then for approximately the last month. She states a previous provider did swabs and ultrasound and everything was negative. She states the pain was relieved while she was on the Macrobid but it came back soon after. She denies fever, chills, complains of occasional nausea with no vomiting, complains of bilateral upper quadrant abdominal pain, complains of abnormal vaginal discharge, complains of dysuria. She denies any other symptoms. TRAVEL OUTSIDE OF THE [place] IN LAST 30 DAYS: No - Related Data Allergies/Adverse Reactions: No Known Allergies Allergy (Verified 12/19/18 16:38) Past Medical History - General Information source: Patient - Social History Smoking Status: Never Smoker Chew tobacco use (# tins/day): No Frequency of alcohol use: None Drug Abuse: None Family History: None Patient has suicidal ideation: No Patient has homicidal ideation: No Renal/ Medical History: Denies: Hx Peritoneal Dialysis Review of Systems - Review of Systems Constitutional: See HPI EENT: No symptoms reported Cardiovascular: See HPI Respiratory: See HPI Gastrointestinal: See HPI Genitourinary: See HPI Female Genitourinary: See HPI Musculoskeletal: No symptoms reported Skin: No symptoms reported Hematologic/Lymphatic: No symptoms reported Neurological/Psychological: No symptoms reported Physical Exam - Vital signs Vitals: Temp Pulse Resp BP Pulse Ox 98.2 F 79 14 134/69 H 100 12/19/18 16:38 12/19/18 16:38 12/19/18 16:38 12/19/18 16:38 12/19/18 16:38 - Notes Notes: PHYSICAL EXAMINATION: Reviewed vital signs and charting by RN GENERAL: Alert, interacts well. No acute distress. HEAD: Normocephalic, atraumatic. EYES: Pupils equal and round. Extraocular movements intact. ENT: Oral mucosa moist, tongue midline. NECK: Full range of motion. Supple. Trachea midline. LUNGS: Clear to auscultation bilaterally, no wheezes, rales, or rhonchi. No respiratory distress. HEART: Regular rate and rhythm. No murmur ABDOMEN: soft, right and left upper quadrant tenderness to palpation slightly worse on the right. Non-distended. Bowel sounds present. no McBurney's point tenderness, no Ashraf sign. EXTREMITIES: Moves all 4 extremities spontaneously. No edema, No cyanosis. No rmal distal neurovascular exam BACK: Right CVAT NEUROLOGIC: Oriented and appropriate. Normal speech. PSYCH: Normal affect, normal mood. SKIN: Warm, dry, normal turgor. No rashes or lesions noted. Course - Re-evaluation Re-evalutation: 12/19/18 18:57 Overall well-appearing, has multiple complaints. No history of kidney stones but has right CVAT. She is having abnormal vaginal discharge but her urine is clean. I will sent for culture. Plan to do a pelvic exam and swabs. 12/19/18 20:03 Wet mount consistent with bacterial vaginosis. We will give Flagyl 500 mg 1 time here in the ER and sent her home with a prescription. Negative for trichomonas GC chlamydia still pending. Patient requests to wait for the results and does not want to get treated prophylactically for GC chlamydia at this time. - Vital Signs Vital signs: Temp Pulse Resp BP Pulse Ox 98.2 F 79 14 134/69 H 100 12/19/18 16:38 12/19/18 16:38 12/19/18 16:38 12/19/18 16:38 12/19/18 16:38 - Laboratory Result Diagrams: 12/19/18 17:00 12/19/18 17:00 Laboratory results interpreted by me: 12/19/18 12/19/18 12/19/18 16:50 17:00 17:00 MCV 76 L MCH 25.3 L RDW 14.2 H Glucose 130 H AST 44 H Ur Leukocyte Esterase TRACE H Discharge - Discharge Clinical Impression: Bacterial vaginosis Condition: Good Disposition: HOME, SELF-CARE Instructions: Vaginosis, Bacterial ([facility]) Additional Instructions: You are being treated for bacterial vaginosis, an overgrowth of normal bacteria in the vagina. You are being sent home on an antibiotic called metronidazole. Take exactly as directed. Never drink alcohol while taking this antibiotic. Please return if you develop abdominal pain, fever greater than 101F, some vomiting, or any other symptoms that are concerning to you. Referrals: EMMANUEL MEZA MD [ACTIVE STAFF] - Follow up as needed
[2018-12-19 19:35] LABS: BACTERIA (WET MOUNT) 3+ BACTERIA SEEN; RBCS (WET MOUNT) RARE RBCS SEEN; T.VAGINALIS (WET MOUNT) NO TRICHOMONAS SEEN; WBCS (WET MOUNT) 1+ WBCS SEEN; YEAST (WET MOUNT) NO YEAST SEEN
[2018-12-19] MEDS ORDERED: METRONIDAZOLE 500 MG TABLET PO ONE (19:54)
[2018-12-19 20:15] VITALS: BP 123/75
[2018-12-19 21:06] LABS: CHLAM PCR NOT DETECTED (NOT DETECT); GON PCR NOT DETECTED (NOT DETECT)
== END 2018-12-19 20:14 | disposition home or self-care (01) ==
LOC: ER 16:36
DX: N76.0 Acute vaginitis (principal); B96.89 Other specified bacterial agents as the cause of diseases classified elsewhere; R10.9 Unspecified abdominal pain; R10.2 Pelvic and perineal pain; R10.11 Right upper quadrant pain; R10.12 Left upper quadrant pain; R10.811 Right upper quadrant abdominal tenderness; R10.812 Left upper quadrant abdominal tenderness; R30.0 Dysuria; R11.0 Nausea; Z87.440 Personal history of urinary (tract) infections
CPT/HCPCS: 99284; 36415; 87210; 83690; 84703; 85025; 80053; 81001; 87491; 87591; J3490